=== PATIENT | male | born 1980 | race Hispanic/Latino ===

== ENCOUNTER → 2018-04-25 | Outpatient (CLI) | payer BC ==
--- NOTE | 2018-04-25 16:38 | Diagnostic Imaging Report ---
PROCEDURE:X-RAY ABDOMEN - KUB COMPARISON:None. INDICATIONS:CALCULUS OF KIDNEY FINDINGS: Nonobstructive bowel gas pattern with moderate amount retained stool in the transverse colon, which partly obscures the renal shadows. Ill-defined density projecting in the lower pole of the right renal shadow is only seen in one of the views, and likely represent stool content.. No radiopaque densities project over the renal shadows, expected course of the ureters or bladder. No acute bony abnormality. CONCLUSION: No calcifications project over the genitourinary system. Damian Fajardo M.D. Dictated by: Damian Fajardo M.D. on 04/25/2018 at 16:43 Electronically approved by: Damian Fajardo M.D. on 04/25/2018 at 16:43
== END ==
LOC: RAD 11:54
PROVIDERS: ATTEND Urology
DX: N20.0 Calculus of kidney (principal)
CPT/HCPCS: 74018